=== PATIENT | female | born 1975 | race Caucasian/White ===

== ENCOUNTER 2017-10-18 12:35 | Inpatient (IN) | payer BC ==
[~2017-10-18 12:35] MED LIST: DIPRIVAN VIAL ONE; VERSED ONE
[2017-10-18 13:00] VITALS: BMI 21.8
[2017-10-18] MEDS ORDERED: NS 1000 ML 1,000 ML ONE ×2 (13:16→21:36)
--- NOTE | 2017-10-18 13:21 | DR.GENAD ---
HPI - PCP Primary Care Physician: SERG - HPI Comment HPI Comment: SEEN IN DR. MANN OFFICE. PATIENT NEED SURGICAL DEBRIDEMENT. IN SEVERE PAIN AND HAVING DIFFICULTY SITTING DOWN. - Complaint/Symptoms Chief Complaint Doctors Comments: ABSCESS RIGHT BUTTOCKS TIMES 5 DAYS. Chief Complaint:: DRAINING ABCESS TO RIGHT BUTTOCK AREA SINCE MONDAY. DIFFICULY SITTING DOWN Self Treatment fo Chief Complaint: WARM SHOWERS - Nurses notes reviewed Nurses Notes Review: Yes - Source History Provided: Patient, Guardian - Mode of Arrival Mode of Arrival: Ambulatory - Timing Onset of Chief Complaint: 10/13/17 Came on: Suddenly - Duration Duration: Constant Duration: Days - Severity Severity: Moderate PMH - PMH Past Medical History: Yes Past Medical History: Renal Disease Past Surgical History: Yes Surgical History: , Hysterectomy - Family History History of Family Medical Conditions: No - Social History Type of Tobacco Use: Cigarettes Alcohol Use: None Do you use any recreational Drugs:: No Lives With: Family Lives Where: Home - infectious screening In the last 2 months have you had wt loss of >10#?: NO Have you had fever, night sweats or hemotysis?: No Have you traveled outside the country in the last 6 months?: No Isolation: Standard ROS - Review of Systems Constitutional: No Symptoms Reported Eyes: No Symptoms Reported ENTM: No Symptoms Reported Respiratoy: No Symptoms Reported Cardiovascular: No Symptoms Reported Gastrointestinal/Abdominal: No Symptoms Reported Genitourinary: No Symptoms Reported Neurological: No Symptoms Reported Musculoskeletal: Other (ABSCESS AND CELLULITIS RT BUTTOCKS. SLIGHT DRAINAGE.) Integumentary: Other (ABSCESS AND CELLULITIS RT BUTTOCKS) Hematologic/Lymphatic: No Symptoms Reported Endocrine: No Symptoms Reported All Other Systems: Reviewed and Negative PE - Vital Signs Vitals: Temperature 98.1 F Pulse Rate 72 Respiratory Rate 16 Blood Pressure [Right Arm] 107/55 Blood Pressure [Left Arm] 137/66 Blood Pressure [Standing] 121/82 Blood Pressure [Sitting] 120/82 Blood Pressure [Lying] 121/69 Blood Pressure 100/69 O2 Sat by Pulse Oximetry 95 - General Limitations: No Limitations General Appearance: Alert - Head Head Exam: Normal Inspection - Eyes Eye exam: Normal Appearance - ENT ENT Exam: Normal External Ear Exam External Ear Exam: Normal External Inspection TM/Canal Exam: Bilateral Normal Nose Exam: Normal Nose Exam Mouth Exam: Normal Inspection Throat Exam: Normal Inspection - Neck Neck Exam: Trachea Midline - Chest Chest Inspection: Symmetric Chest Wall Rise - Respiratory Respiratory Exam: Normal Lung Sounds Bilat Respiratory Exam: Bilateral Clear to Auscultation - Cardiovascular Cardiovascular Exam: Regular Rate, Normal Rhythm, Normal Heart Sounds - Abdominal Exam Abdominal Exam: Normal Bowel Sounds, Soft, Tenderness - Extremities Extremities Exam: Normal Inspection - Back Back Exam: Other (ABSCESS CELLULITIS RT BUTTOCKS) - Neurologic Neurological Exam: Alert, Oriented X3 - Psychiatric Psychiatric Exam: Anxious - Skin Skin Exam: Erythema MDM - Differential Diagnosis Differential Diagnosis: ABSCESS AND CELLULITIS RT BUTTOCKS. Course - Treatment Treatment: SEE ORDERS. - Education/Counseling Education/Counseling: Patient, Education Educated On: Treatment, Diagnosis, Needs for Follow Up ROR - Labs Reviewed Laboratory Results Reviewed?: Yes Result Diagrams: 10/19/17 03:50 10/19/17 03:50 - Diagnosis Discharge Problem: Abscess and cellulitis of gluteal region - Discharge Plan Disposition: ADMITTED INPATIENT Condition: Stable - Follow ups/Referrals - Instructions
[2017-10-18] MEDS ORDERED: VERSED ONE (13:26)
[2017-10-18] MEDS ORDERED: DIPRIVAN VIAL ONE (13:26)
[2017-10-18] MEDS ORDERED: DILAUDID INJ ONE ×4 (13:27→15:02)
[2017-10-18] MEDS ORDERED: ZOFRAN INJ 4 MG VIAL ONE (13:27)
[2017-10-18] MEDS ORDERED: ZOFRAN INJ 4 MG VIAL IVP ONE (13:32)
[2017-10-18] MEDS ORDERED: DILAUDID INJ IVP ONE ×4 (13:33→15:01)
[2017-10-18] MEDS ORDERED: NS 1000 ML 1,000 ML IV ONE (13:36)
[2017-10-18 14:15] LABS: BASOPHILS % (AUTO) 0.6 % (0.2-1.0); EOSINOPHILS # (AUTO) 0.1 x10^3/uL (0.0-0.2); EOSINOPHILS % (AUTO) 1.7 % (0.9-2.9); HEMATOCRIT 34.9 % (36.0-47.0); LYMPHOCYTES % (AUTO) 16.9 % (21.0-51.0); MEAN CORPUSCULAR HEMOGLOBIN 30.1 pg (27.0-34.0); MEAN CORPUSCULAR HGB CONC 34.3 g/dL (33.0-35.0); MEAN CORPUSCULAR VOLUME 87.8 fL (80.0-100.0); MEAN PLATELET VOLUME 8.8 fL (7.4-11.0); MONOCYTES # (AUTO) 0.5 x10^3/uL (0.3-0.8); MONOCYTES % (AUTO) 8.9 % (0.0-13.0); NEUTROPHILS # (AUTO) 4.1 x10^3/uL (2.2-4.8); NEUTROPHILS % (AUTO) 71.9 % (42.0-75.0); PLATELET COUNT 222 X10^3/uL (150.0-450.0); RED BLOOD COUNT 3.97 X10^6/uL (3.5-5.4); RED CELL DISTRIBUTION WIDTH 12.5 % (11.6-16.5); WHITE BLOOD COUNT 5.7 X10^3/uL (3.6-10.0)
[2017-10-18 14:23] LABS: ALANINE AMINOTRANSFERASE 50 Units/L (12-78); ALBUMIN 3.4 g/dL (3.4-5.0); ALKALINE PHOSPHATASE 82 Units/L (46-116); ASPARTATE AMINO TRANSFERASE 31 Units/L (15-37); BLOOD UREA NITROGEN 12 mg/dL (7-18); CARBON DIOXIDE 30.4 mmol/L (21-32); CHLORIDE 104 mmol/L (98-107); SODIUM 142 mmol/L (136-145); TOTAL PROTEIN 7.1 g/dL (6.4-8.2); eGFR BLACK RACES > 60 (>60); eGFR NON BLACK RACES > 60 (>60)
[2017-10-18] MEDS ORDERED: PHENERGAN TAB 25 MG PO PRN ×2 (14:44→14:57)
[2017-10-18] MEDS ORDERED: MOTRIN TAB 600 MG PO PRN ×2 (14:44→14:57)
[2017-10-18] MEDS ORDERED: VANCOMYCIN HCL 500 MG VIAL 250 MG, VANCOMYCIN HCL 1 GM VIAL 1 GM in D5W 250 ML IV 250 ML IV SCH (14:50)
[2017-10-18] MEDS ORDERED: VANCOMYCIN HCL 1 GM VIAL 1 GM in D5W 250 ML IV 250 ML IV ONE (14:51)
[2017-10-18] MEDS ORDERED: VANCOMYCIN HCL 1 GM VIAL ONE (14:53)
[2017-10-18] MEDS ORDERED: NS 250 ML IV 250 ML IV ONE (14:53)
[2017-10-18] MEDS: VANCOMYCIN HCL 1 GM VIAL 1 GM in D5W 250 ML IV 250 ML IV SCH ×2 (14:59→22:45)
[2017-10-18] MEDS ORDERED: PHARMACY CONSULT - VANCOMYCIN XX SCH (15:00)
[2017-10-18] MEDS ORDERED: ZOFRAN INJ 4 MG VIAL IVP PRN (16:13)
[2017-10-18] MEDS: DILAUDID INJ IVP PRN (19:53)
[2017-10-18] MEDS ORDERED: FENTANYL INJ 100 mcg ONE (20:33)
[2017-10-18] MEDS ORDERED: XYLOCAINE 1% and EPINEPHRINE 1:100,000 ONE (21:26)
[2017-10-18] MEDS ORDERED: MARCAINE 0.25% INJ ONE (21:26)
[2017-10-18] MEDS ORDERED: HYDROGEN PEROXIDE 3% ONE (21:58)
[2017-10-18] MEDS ORDERED: ZOSYN VIAL 3.375 GM 3.375 GM in NS 100 ML IV + SPIKE MINIBAG* 100 ML IV SCH (22:00)
--- NOTE | 2017-10-18 22:21 | OR.GENERIC ---
Post-Op Note Generic - Post-Op Note Operative Report: Date of Operation: October 18, 2017 Pre-Operative Diagnosis: Right gluteal abscess. Post-Operative Diagnosis: Right gluteal abscess (complex). Procedure: Incision and drainage of right gluteal abscess (complex). Surgeon: Harmeet Brooks MD Perinatal Specialist: Ladarius Pepe CRNA Anesthesia: Monitored anesthesia care and local. Specimen: Wound culture. Estimated blood loss: Minimal Complications: None Summary: The patient is a 42 year old female who presented with a right gluteal abscess. The patient was admitted to the hospital and surgery consulted. The patient was offered incision and drainage. The risk and benefits of the procedure including difficulty with anesthesia, bleeding, infection, scar formation, delayed healing, as well as recurrence were discussed with the patient. The patient understood these risks and requested the procedure. On October 18, 2017, the patient was brought to the operative theatre and placed in a left lateral decubitus position. A time out was performed verifying the patient and the procedure. After satisfactory induction of monitored anesthesia care, the right gluteal and perineal region were prepped with Chloraprep and draped in the usual fashion. Local anesthetic was infiltrated around the area of induration. Two sites of spontaneous drainage were noted with injection of local. The lower area of drainage was selected for the incision. A small core of skin was removed sharply. The abscess cavity was entered bluntly. A copious amount of purulent drainage was noted. Cultures were obtained and sent to microbiology. All loculations were disrupted bluntly. The abscess cavity was 12 cm x 4 cm and extended from the mid-gluteal area to the posterior labia along the intergluteal fold. The abscess cavity was copiously irrigated. Next, the wound was packed with 2 Iodoform. A sterile dressing was placed. The patient was awakened and taken to the recovery room in stable condition. There were no complications. All counts were correct.
[2017-10-18] MEDS: PERCOCET TAB 5/325 MG PO PRN (23:04)
[2017-10-19] MEDS: DILAUDID INJ IVP PRN ×5 (01:30→20:19)
[2017-10-19 04:40] LABS: BASOPHILS % (AUTO) 0.6 % (0.2-1.0); EOSINOPHILS # (AUTO) 0.1 x10^3/uL (0.0-0.2); EOSINOPHILS % (AUTO) 2.1 % (0.9-2.9); HEMATOCRIT 31.3 % (36.0-47.0); HEMOGLOBIN 10.6 g/dL (12.0-16.0); LYMPHOCYTES # (AUTO) 1.2 X10^3/uL (1.3-2.9); LYMPHOCYTES % (AUTO) 20.3 % (21.0-51.0); MEAN CORPUSCULAR HEMOGLOBIN 30.1 pg (27.0-34.0); MEAN CORPUSCULAR HGB CONC 33.9 g/dL (33.0-35.0); MEAN CORPUSCULAR VOLUME 88.8 fL (80.0-100.0); MEAN PLATELET VOLUME 8.5 fL (7.4-11.0); MONOCYTES # (AUTO) 0.6 x10^3/uL (0.3-0.8); MONOCYTES % (AUTO) 10.8 % (0.0-13.0); NEUTROPHILS # (AUTO) 3.8 x10^3/uL (2.2-4.8); NEUTROPHILS % (AUTO) 66.2 % (42.0-75.0); PLATELET COUNT 194 X10^3/uL (150.0-450.0); RED BLOOD COUNT 3.52 X10^6/uL (3.5-5.4); RED CELL DISTRIBUTION WIDTH 12.6 % (11.6-16.5); WHITE BLOOD COUNT 5.7 X10^3/uL (3.6-10.0)
[2017-10-19] MEDS ORDERED: NS 1000 ML 1,000 ML ONE (04:55)
[2017-10-19 04:56] LABS: ALANINE AMINOTRANSFERASE 39 Units/L (12-78); ALBUMIN 2.7 g/dL (3.4-5.0); ALKALINE PHOSPHATASE 74 Units/L (46-116); ASPARTATE AMINO TRANSFERASE 24 Units/L (15-37); BLOOD UREA NITROGEN 11 mg/dL (7-18); CALCIUM 8.3 mg/dL (8.5-10.1); CARBON DIOXIDE 32.5 mmol/L (21-32); CHLORIDE 107 mmol/L (98-107); COR CA(FOR HYPOALB) 9.3 mg/dL (8.5-10.1); CREATININE 0.63 mg/dL (0.55-1.02); SODIUM 144 mmol/L (136-145); eGFR BLACK RACES > 60 (>60); eGFR NON BLACK RACES > 60 (>60)
[2017-10-19] MEDS: VANCOMYCIN HCL 1 GM VIAL 1 GM in D5W 250 ML IV 250 ML IV SCH (08:37)
[2017-10-19] MEDS: PERCOCET TAB 5/325 MG PO PRN ×4 (08:40→22:20)
[2017-10-19] MEDS: WELLBUTRIN XL 150 MG (DAILY) PO SCH (14:25)
[2017-10-19] MEDS: EFFEXOR XR 150 MG CAP PO SCH (14:25)
[2017-10-19] MEDS: VANCOMYCIN HCL 1 GM VIAL 1 GM in NS 250 ML IV 250 ML IV SCH (20:45)
[2017-10-20] MEDS: DILAUDID INJ IVP PRN ×6 (00:40→22:27)
[2017-10-20] MEDS: PERCOCET TAB 5/325 MG PO PRN ×4 (04:25→20:20)
[2017-10-20 05:24] LABS: ALANINE AMINOTRANSFERASE 33 Units/L (12-78); ALBUMIN 2.7 g/dL (3.4-5.0); ALKALINE PHOSPHATASE 73 Units/L (46-116); ASPARTATE AMINO TRANSFERASE 16 Units/L (15-37); BLOOD UREA NITROGEN 10 mg/dL (7-18); CALCIUM 8.7 mg/dL (8.5-10.1); CHLORIDE 106 mmol/L (98-107); COR CA(FOR HYPOALB) 9.7 mg/dL (8.5-10.1); CREATININE 0.55 mg/dL (0.55-1.02); SODIUM 145 mmol/L (136-145); eGFR BLACK RACES > 60 (>60); eGFR NON BLACK RACES > 60 (>60)
[2017-10-20 05:32] LABS: BASOPHILS % (AUTO) 0.9 % (0.2-1.0); EOSINOPHILS # (AUTO) 0.1 x10^3/uL (0.0-0.2); EOSINOPHILS % (AUTO) 2.5 % (0.9-2.9); HEMATOCRIT 32.8 % (36.0-47.0); HEMOGLOBIN 11.3 g/dL (12.0-16.0); LYMPHOCYTES # (AUTO) 1.3 X10^3/uL (1.3-2.9); LYMPHOCYTES % (AUTO) 28.2 % (21.0-51.0); MEAN CORPUSCULAR HEMOGLOBIN 30.1 pg (27.0-34.0); MEAN CORPUSCULAR HGB CONC 34.3 g/dL (33.0-35.0); MEAN CORPUSCULAR VOLUME 87.8 fL (80.0-100.0); MEAN PLATELET VOLUME 8.4 fL (7.4-11.0); MONOCYTES # (AUTO) 0.5 x10^3/uL (0.3-0.8); MONOCYTES % (AUTO) 9.8 % (0.0-13.0); NEUTROPHILS # (AUTO) 2.7 x10^3/uL (2.2-4.8); NEUTROPHILS % (AUTO) 58.6 % (42.0-75.0); PLATELET COUNT 224 X10^3/uL (150.0-450.0); RED BLOOD COUNT 3.74 X10^6/uL (3.5-5.4); RED CELL DISTRIBUTION WIDTH 12.7 % (11.6-16.5); WHITE BLOOD COUNT 4.7 X10^3/uL (3.6-10.0)
[2017-10-20 07:25] LABS: PLATELET MORPHOLOGY COMMENT NORMAL (NORMAL)
[2017-10-20] MEDS: WELLBUTRIN XL 150 MG (DAILY) PO SCH (09:20)
[2017-10-20] MEDS: EFFEXOR XR 150 MG CAP PO SCH (09:20)
[2017-10-20] MEDS: VANCOMYCIN HCL 1 GM VIAL 1 GM in NS 250 ML IV 250 ML IV SCH ×2 (09:22→20:27)
[2017-10-20] MEDS ORDERED: NS 500 ML IV 500 ML IV ONE (09:27)
[2017-10-21] MEDS: PERCOCET TAB 5/325 MG PO PRN ×3 (00:26→10:11)
[2017-10-21] MEDS: DILAUDID INJ IVP PRN ×3 (03:24→11:53)
[2017-10-21 06:31] LABS: BASOPHILS % (AUTO) 0.4 % (0.2-1.0); EOSINOPHILS # (AUTO) 0.2 x10^3/uL (0.0-0.2); EOSINOPHILS % (AUTO) 2.9 % (0.9-2.9); HEMATOCRIT 32.5 % (36.0-47.0); HEMOGLOBIN 11.3 g/dL (12.0-16.0); LYMPHOCYTES # (AUTO) 1.5 X10^3/uL (1.3-2.9); MEAN CORPUSCULAR HEMOGLOBIN 30.6 pg (27.0-34.0); MEAN CORPUSCULAR HGB CONC 34.9 g/dL (33.0-35.0); MEAN CORPUSCULAR VOLUME 87.6 fL (80.0-100.0); MEAN PLATELET VOLUME 8.1 fL (7.4-11.0); MONOCYTES # (AUTO) 0.5 x10^3/uL (0.3-0.8); MONOCYTES % (AUTO) 8.4 % (0.0-13.0); NEUTROPHILS # (AUTO) 3.3 x10^3/uL (2.2-4.8); NEUTROPHILS % (AUTO) 60.3 % (42.0-75.0); PLATELET COUNT 261 X10^3/uL (150.0-450.0); RED BLOOD COUNT 3.71 X10^6/uL (3.5-5.4); RED CELL DISTRIBUTION WIDTH 12.5 % (11.6-16.5); WHITE BLOOD COUNT 5.5 X10^3/uL (3.6-10.0)
[2017-10-21 06:53] LABS: ALANINE AMINOTRANSFERASE 34 Units/L (12-78); ALBUMIN 2.6 g/dL (3.4-5.0); ALKALINE PHOSPHATASE 65 Units/L (46-116); ASPARTATE AMINO TRANSFERASE 15 Units/L (15-37); BLOOD UREA NITROGEN 10 mg/dL (7-18); CALCIUM 8.4 mg/dL (8.5-10.1); CARBON DIOXIDE 32.8 mmol/L (21-32); CHLORIDE 106 mmol/L (98-107); COR CA(FOR HYPOALB) 9.5 mg/dL (8.5-10.1); CREATININE 0.62 mg/dL (0.55-1.02); SODIUM 145 mmol/L (136-145); TOTAL PROTEIN 5.9 g/dL (6.4-8.2); eGFR BLACK RACES > 60 (>60); eGFR NON BLACK RACES > 60 (>60)
[2017-10-21 07:04] LABS: PLATELET MORPHOLOGY COMMENT NORMAL (NORMAL)
[2017-10-21] MEDS ORDERED: K-LYTE EFFERVESCENT PO PRN (07:36)
[2017-10-21] MEDS ORDERED: K-RIDER 10 MEQ/NS 100 ML 10 MEQ/100 ML BAG IV PRN (07:36)
[2017-10-21] MEDS ORDERED: POTASSIUM CHL 40 MEQ/NS 0.45% 500 ML IV PRN (07:36)
[2017-10-21] MEDS ORDERED: MAG-OX TAB PO PRN (07:36)
[2017-10-21] MEDS ORDERED: MAGNESIUM SULFATE 1 GM/100 mL PREMIX 1 GM/100 ML BAG IV PRN (07:36)
[2017-10-21] MEDS ORDERED: POTASSIUM CHL 60 MEQ/NS 0.45% 500 ML IV PRN (07:36)
[2017-10-21] MEDS ORDERED: POTASSIUM CHLORIDE LIQ 20 MEQ UDC PO PRN (07:36)
[2017-10-21 09:28] LABS: CREATININE 0.67 mg/dL (0.55-1.02); VANCOMYCIN,TROUGH 9.1 ug/mL (15-20)
[2017-10-21] MEDS: WELLBUTRIN XL 150 MG (DAILY) PO SCH (10:06)
[2017-10-21] MEDS: VANCOMYCIN HCL 1 GM VIAL 1 GM in NS 250 ML IV 250 ML IV SCH (10:07)
[2017-10-21] MEDS: EFFEXOR XR 150 MG CAP PO SCH (10:07)
[2017-10-21 12:11] VITALS: BP 117/58
== END 2017-10-21 15:10 | disposition home or self-care (01) | DRG 603 ==
LOC: ER 13:07 → OBS 14:55
PROVIDERS: ADMIT Internal Medicine; ATTEND Internal Medicine
PROC: 0H98XZX Drainage of Buttock Skin, External Approach, Diagnostic (ICD-10-PCS; principal; 2017-10-18 16:45)
DX: L02.31 Cutaneous abscess of buttock (principal); L03.317 Cellulitis of buttock; B95.62 Methicillin resistant Staphylococcus aureus infection as the cause of diseases classified elsewhere
CPT/HCPCS: 36415; 80053; 80202; 82565; 83735; 85025; 87040; 87070; 87075; 87077; 87186; 87205; 96365; 96367; 96374; 96375; 99282; 99284; A4216; A4222; Q0169; S0020; S0106; J1170; J2001; J2250; J2405; J3010; J3370; J3490